=== PATIENT | female | born 1985 | race American Indian/Alaskan Native ===

== ENCOUNTER 2021-12-06 11:41 | Emergency (ER) | payer MEDICAID ==
--- NOTE | 2021-12-06 12:58 | Emergency Department Report ---
HPI <GLORY LOUIS - Last Filed: 12/06/21 15:56> - HPI HPI: Room 21 The patient is a 36-year-old female present with chief complaint of dizziness nausea and vomiting. Per EMS the patient was celebrating her birthday last night consuming moderate amount of alcohol. Per EMS the mother stated the pat ient was "acting funny" and called EMS. EMS reportedly found the patient under tables complaining of nausea vomiting. The patient states she kept throwing up and gasping for air. EMS administered Zofran 4 mg IV while in route the patient states she feels a little better. Patient now just complains of some dizziness. <DEREJE MCLEAN - Last Filed: 12/07/21 17:45> - General Chief Complaint: Alcohol Time Seen by Provider: 12/06/21 12:48 ED Past Medical Hx - Past Medical History Previous Medical History?: No - Surgical History Past Surgical History?: No - Family History Family history: no significant - Social History Smoking Status: Current Every Day Smoker (1/2 pack/day) Substance Use Type: None (Denies illicit drug use), Alcohol (Occasional) <DEREJE MCLEAN - Last Filed: 12/07/21 17:45> ED Review of Systems ROS: Stated complaint: ALTERED MENTAL STATUS Other details as noted in HPI <GLORY LOUIS - Last Filed: 12/06/21 15:56> ROS: Stated complaint: ALTERED MENTAL STATUS Other details as noted in HPI Constitutional: no symptoms reported Eyes: denies: eye pain ENT: denies: throat pain Respiratory: no symptoms reported Cardiovascular: denies: chest pain Endocrine: no symptoms reported Gastrointestinal: nausea, vomiting Genitourinary: denies: dysuria Musculoskeletal: denies: back pain Neurological: other (Dizziness) <DEREJE MCLEAN - Last Filed: 12/07/21 17:45> Physical Exam - Physical Exam Vital Signs: Vital Signs 12/06/21 12/06/21 12/06/21 12:40 12:51 13:49 Pulse Rate 72 80 80 Respiratory 18 18 18 Rate Blood Pressure 116/80 125/65 122/69 [Left] O2 Sat by Pulse 99 99 99 Oximetry 12/06/21 12/06/21 14:40 15:05 Pulse Rate 80 72 Respiratory 18 18 Rate Blood Pressure 122/68 134/80 [Left] O2 Sat by Pulse 99 99 Oximetry <GLORY LOUIS - Last Filed: 12/06/21 15:56> - Physical Exam Vital Signs: Vital Signs 12/06/21 12/06/21 12:40 12:51 Pulse Rate 72 80 Respiratory 18 18 Rate Blood Pressure 116/80 125/65 [Left] O2 Sat by Pulse 99 99 Oximetry Physical Exam: GENERAL: The patient is well-developed well-nourished female lying on stretcher not appearing to be in acute distress. [] HEENT: Normocephalic. Atraumatic. Extraocular motions are intact. Patient has moist mucous membranes. No nystagmus noted NECK: Supple. Trachea midline CHEST/LUNGS: Clear to auscultation. There is no respiratory distress noted. HEART/CARDIOVASCULAR: Regular. There is no tachycardia. There is no gallop rub or murmur. ABDOMEN: Abdomen is soft, nontender. Patient has normal bowel sounds. There is no abdominal distention. SKIN: There is no rash. There is no edema. There is no diaphoresis. NEURO: The patient is awake, alert, and oriented. The patient is cooperative. The patient has no focal neurologic deficits. The patient has normal speech and gait. Cranial nerves II through XII grossly intact. GCS 15 MUSCULOSKELETAL: There is no evidence of acute injury. <DEREJE MCLEAN - Last Filed: 12/07/21 17:45> ED Course Vital Signs 12/06/21 12/06/21 12/06/21 12:40 12:51 13:49 Pulse Rate 72 80 80 Respiratory 18 18 18 Rate Blood Pressure 116/80 125/65 122/69 [Left] O2 Sat by Pulse 99 99 99 Oximetry 12/06/21 12/06/21 14:40 15:05 Pulse Rate 80 72 Respiratory 18 18 Rate Blood Pressure 122/68 134/80 [Left] O2 Sat by Pulse 99 99 Oximetry <GLROY LOUIS - Last Filed: 12/06/21 15:56> Vital Signs 12/06/21 12/06/21 12:40 12:51 Pulse Rate 72 80 Respiratory 18 18 Rate Blood Pressure 116/80 125/65 [Left] O2 Sat by Pulse 99 99 Oximetry - Reevaluation(s) Reevaluation #1: 12/06/21 13:59 Patient ambulating around the ED. Normal gait <DEREJE MCLEAN - Last Filed: 12/07/21 17:45> ED Medical Decision Making - Lab Data Result diagrams: 12/06/21 13:14 12/06/21 13:14 <GLORY LOUIS - Last Filed: 12/06/21 15:56> - Lab Data Result diagrams: 12/06/21 13:14 12/06/21 13:14 - EKG Data -: EKG Interpreted by Me EKG shows normal: sinus rhythm Rate: bradycardia (50 bpm) - EKG Data When compared to previous EKG there are: previous EKG unavailable Interpretation: other (No ischemic changes seen) - Radiology Data Radiology results: report reviewed (CT head), image reviewed (CT head, chest x- ray) interpreted by me: Chest x-ray-no definite focal infiltrates, no pneumothorax [facility] [address] [place] [address] Cat Scan Report Signed Patient: MANDI OWENS MR#: [id number] : 1985 Acct:[id number] Age/Sex: 36 / F ADM Date: 12/06/21 Loc: ED Attending Dr: Ordering Physician: DEREJE MCLEAN MD Date of Service: 12/06/21 Procedure(s): CT head/brain wo con Accession Number(s): [id number] cc: DEREJE MCLEAN MD CT HEAD WITHOUT CONTRAST INDICATION / CLINICAL INFORMATION: Dizziness, nausea/vomiting. TECHNIQUE: All CT scans at this location are performed using CT dose reduction for ALARA by means of automated exposure control. COMPARISON: None available. FINDINGS: HEMORRHAGE: No evidence of intracranial hemorrhage or extra-axial fluid col lection. EXTRA-AXIAL SPACES: Cortical sulci, sylvian fissures and basilar cisterns have an unremarkable appearance. VENTRICULAR SYSTEM: The third and lateral ventricles are of normal size and c onfiguration. CEREBRAL PARENCHYMA: No areas of abnormal brain parenchymal attenuation are identified. There is no indication of recent infarction. MIDLINE SHIFT OR HERNIATION: There is no mass effect. CEREBELLUM / BRAINSTEM: Brainstem and cerebellum have an unremarkable appearance. MIDLINE STRUCTURES:No abnormalities of the pituitary gland or pineal region are identified. INTRACRANIAL VESSELS:No abnormalities are identified on this noncontrast head CT. ORBITS: visualized portions of the orbits have an unremarkable appearance. SOFT TISSUES of HEAD: No significant abnormality. CALVARIUM: Evaluation of bone windows reveals no abnormalities. PARANASAL SINUSES / MASTOID AIR CELLS: Subtotal opacification of the visualized portions of the right maxillary sinus is observed. Mucosal thickening is present in the right sphenoid sinus. Paranasal sinuses and mastoid air cells otherwise appear clear. IMPRESSION: 1. No significant intercranial abnormality. Signer Name: Mauri Joaquin MD Signed: 12/06/2021 2:23 PM Workstation Name: [id number] Transcribed By: Dictated By: Mauri Joaquin MD Electronically Authenticated By: Mauri Joaquin MD Signed Date/Time: 12/06/211422 DD/ 20 TD/TT: - Differential Diagnosis Alcohol intoxication, substance abuse, vertigo, <DEREJE MCLEAN - Last Filed: 12/07/21 17:45> Critical care attestation.: If time is entered above; I have spent that time in minutes in the direct care of this critically ill patient, excluding procedure time. <GLORY LOUIS - Last Filed: 12/06/21 15:56> Critical care attestation.: If time is entered above; I have spent that time in minutes in the direct care of this critically ill patient, excluding procedure time. <DEREJE MCLEAN - Last Filed: 12/07/21 17:45> ED Disposition Is pt being admited?: No Time of Disposition: 15:57 <GLORY LOUIS - Last Filed: 12/06/21 15:56> Is pt being admited?: No Does the pt Need Aspirin: No <DEREJE MCLEAN - Last Filed: 12/07/21 17:45> Clinical Impression: Cocaine abuse, High anion gap metabolic acidosis, Hypoglycemia Alcohol intoxication Qualifiers: Complication of substance-induced condition: with unspecified complication Qualified Code(s): F10.929 - Alcohol use, unspecified with intoxication, unspecified Disposition: 07 LEFT AGAINST MEDICAL ADVICE Condition: Stable Instructions: Preventing Hypoglycemia, Binge-Drinking Information, Adult, Kwan bstance Use Disorder, Metabolic Acidosis, Blood Glucose Monitoring, Adult Referrals: VANNESSA ORR MD [Primary Care Provider] - 3-5 Days
[2021-12-06] MEDS ORDERED: SODIUM CHLORIDE 0.9% 1000 ML 1,000 ML IV ONE ×2 (12:59→14:03)
[2021-12-06 14:01] LABS: Alanine Aminotransferase 31 units/L (7-56); BUN/Creatinine Ratio 14; Blood Urea Nitrogen 11 mg/dL (7-17); Calcium 8.7 mg/dL (8.4-10.2); Hemolysis Index 12
[2021-12-06 14:19] LABS: Amphetamine Screen,Urine Negative; Benzodiazepines Screen,Urine Negative; Methadone Screen,Urine Negative; Opiate Screen,Urine Negative
--- NOTE | 2021-12-06 14:28 | Cat Scan Report ---
CT HEAD WITHOUT CONTRAST INDICATION / CLINICAL INFORMATION: Dizziness, nausea/vomiting. TECHNIQUE: All CT scans at this location are performed using CT dose reduction for ALARA by means of automated e xposure control. COMPARISON: None available. FINDINGS: HEMORRHAGE: No evidence of intracranial hemorrhage or extra-axial fluid collection. EXTRA-AXIAL SPACES: Cortical sulci, sylvian fissures and basilar cisterns have an unremarkable appear ance. VENTRICULAR SYSTEM: The third and lateral ventricles are of normal size and configuration. CEREBRAL PARENCHYMA: No areas of abnormal brain parenchymal attenuation are identified. There is no i ndication of recent infarction. MIDLINE SHIFT OR HERNIATION: There is no mass effect. CEREBELLUM / BRAINSTEM: Brainstem and cerebellum have an unremarkable appearance. MIDLINE STRUCTURES:No abnormalities of the pituitary gland or pineal region are identified. INTRACRANIAL VESSELS:No abnormalities are identified on this noncontrast head CT. ORBITS: visualized portions of the orbits have an unremarkable appearance. SOFT TISSUES of HEAD: No significant abnormality. CALVARIUM: Evaluation of bone windows reveals no abnormalities. PARANASAL SINUSES / MASTOID AIR CELLS: Subtotal opacification of the visualized portions of the right maxillary sinus is observed. Mucosal thickening is present in the right sphenoid sinus. Paranasal si nuses and mastoid air cells otherwise appear clear. IMPRESSION: 1. No significant intercranial abnormality. Signer Name: Mauri Joaquin MD Signed: 12/06/2021 2:23 PM Workstation Name: [id number]
[2021-12-06 14:32] LABS: Hematocrit 39.7 % (30.3-42.9); Hemoglobin 12.3 gm/dl (10.1-14.3); Mean Corpuscular HGB Conc 31 % (30-34); Mean Corpuscular Volume 92 fl (79-97); Platelet Count 388 K/mm3 (140-440); Red Blood Count 4.32 M/mm3 (3.65-5.03); Red Cell Distribution Width 16.3 % (13.2-15.2)
[2021-12-06 14:34] LABS: Cannabinoid Screen,Urine Positive; Cocaine Screen,Urine Positive
[2021-12-06 14:40] LABS: INR 0.89 (0.87-1.13)
[2021-12-06] MEDS ORDERED: DEXTROSE 50% IN WATER (25GM) 50 ML SYRINGE IV ONE (14:40)
[2021-12-06] MEDS ORDERED: THIAMINE 100 MG in SODIUM CHLORIDE 0.9% 50 ML IV ONE (14:40)
[2021-12-06] MEDS ORDERED: ONDANSETRON 4 MG/2 ML INJ IV ONE (14:42)
[2021-12-06 15:05] VITALS: BP 134/80
[2021-12-06 15:06] LABS: Bacteria,Urine 1+ /HPF (Negative); Mucus,Urine FEW /HPF; WBC,Urine < 1.0 /HPF (0.0-6.0)
--- NOTE | 2021-12-06 15:08 | XRay Report ---
CHEST 1 VIEW INDICATION: Difficulty breathing. COMPARISON: None FINDINGS: SUPPORT DEVICES: None. HEART: Within normal limits. LUNGS/PLEURA: No acute air space or interstitial disease. ADDITIONAL FINDINGS: None. IMPRESSION: 1. No acute findings. Signer Name: Kalyan Lagunas MD Signed: 12/06/2021 3:03 PM Workstation Name: [id number]
[2021-12-06 15:36] LABS: Bilirubin,Urine NEG (Negative); Blood,Urine SM (Negative); Color,Urine Straw (Yellow); Protein,Urine <15 mg/dL mg/dL (Negative); Urobilinogen,Urine < 2 mg/dL (<2.0)
--- NOTE | 2021-12-06 15:43 | Emergency Department Report ---
Blank Doc - Documentation Documentation: This is a 36-year-old female who was endorsed to me by Dr. Blood at 3:10 PM. Patient is requesting to be discharged from the hospital, but in lieu of her apparent metabolic acidosis, and hypoglycemia (resolved now) it was recommended that she have a repeat chemistry performed after IV fluids. However, patient is requesting to be discharged AGAINST MEDICAL ADVICE. The benefits of further stabilization and/or hospitalization and the risk of leaving have been explained and understood by this patient. The patient is competent to make such a decision at this time, as she is no longer hypoglycemic or altered. Patient endorses understanding, and will return to the emergency department for any worsening of her symptoms, and will be allowed to sign out AGAINST MEDICAL ADVICE.
[2021-12-06 16:49] LABS: Basophils % (Manual) 0 % (0.0-1.8); Eosinophils % (Manual) 0 % (0.0-4.3); Platelet Estimate Consistent w Auto; Total Cells Counted 100
--- NOTE | 2021-12-07 10:18 | Electrocardiograph Report ---
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
== END 2021-12-06 15:53 | disposition left against medical advice (07) ==
LOC: ED 11:41
DX: F10.129 Alcohol abuse with intoxication, unspecified (principal); F17.200 Nicotine dependence, unspecified, uncomplicated; Z79.899 Other long term (current) drug therapy; Y90.9 Presence of alcohol in blood, level not specified
CPT/HCPCS: 36415; 70450; 71045; 80053; 80307; 81001; 83690; 84484; 84703; 85007; 85025; 85610; 93005; 96361; 96365; 96375; 99285; J2405; J3411; J3490; J7030; 80320; G0480